=== PATIENT | female | born 1955 | race Two or more races ===

== ENCOUNTER 2018-11-19 05:37 | Emergency (ER) | payer OTHER ==
[~2018-11-19] VITALS: Ht 160 cm; Wt 93.9 kg
[2018-11-19] MEDS ORDERED: TENORMIN50 M1 (05:53)
[2018-11-19] MEDS ORDERED: CLONAZEPAM0.5 MG (05:55)
[2018-11-19] MEDS ORDERED: NORFLEX100MG PO (07:20)
[2018-11-19] MEDS ORDERED: KETO10TA2 PO (07:20)
== END 2018-11-19 07:50 | disposition home or self-care (01) ==
LOC: ER 05:37
DX: M62.838 Other muscle spasm (principal); M25.511 Pain in right shoulder